=== PATIENT | female | born 1980 | race Caucasian/White ===

== ENCOUNTER → 2018-06-13 08:39 | Outpatient (CLI) | payer BC | END | disposition home or self-care (01) | LOC: D.CT 08:30 | DX: R05 Cough (principal) ==

== ENCOUNTER 2020-12-19 14:00 | Outpatient (CLI) | payer BC | END 2020-12-19 23:59 | disposition home or self-care (01) | LOC: D.MAMMO 14:00 | PROVIDERS: ATTEND Family Medicine | DX: N64.4 Mastodynia (principal) ==